=== PATIENT | female | born 1960 | race American Indian/Alaskan Native ===

== ENCOUNTER 2016-03-26 07:38 | Outpatient (CLI) | payer OTHER ==
--- NOTE | 2016-03-26 10:12 | Mammography Report ---
Bilateral mammogram: Compared to 06/19/13. CAD stabilized. Findings: Heterogeneous breast parenchyma bilaterally. Focal asymmetry upper right breast without interval change. There is new 1 cm circumscribed density noted at upper mid right breast and outer mid left breast. No microcalcifications. Benign axilla. Impression: New density right and left breast. Recommend spot magnificent sonographic examination. BI-RADS CATEGORY: 0 = Needs additional imaging evaluation ACR BI-RADS MAMMOGRAPHIC CODES: 0 = Needs additional imaging evaluation; 1 = Negative; 2 = Benign; 3 = Probably benign; 4 = Suspicious; 5 = Malignant; 6 = Known biopsy-proven malignancy COMMENT: 1. Dense breast tissue, i.e., adenosis, fibrocystic changes, etc., may obscure an underlying neoplasm. 2. Approximately 10% of cancers are not detected with mammography. 3. A negative mammography report should not delay biopsy if a clinically suspicious mass is present. COMMENT: Patient follow-up letters are generated in [employer]..
== END 2016-03-26 07:39 | disposition home or self-care (01) ==
LOC: MAMMO 07:38
PROVIDERS: ATTEND Obstetrics & Gynecology Gynecology
DX: Z12.31 Encounter for screening mammogram for malignant neoplasm of breast (principal)
CPT/HCPCS: 77067; G0202

== ENCOUNTER 2016-04-02 13:30 | Outpatient (CLI) | payer OTHER ==
--- NOTE | 2016-04-02 14:11 | Mammography Report ---
BILATERAL DIGITAL DIAGNOSTIC MAMMOGRAM : 04/02/16 13:30:00 CLINICAL: Recalled for bilateral asymmetries. COMPARISON:03/26/16 screening FINDINGS: Bilateral ML and spot compression views were performed. Satisfactory effacement of the previously described asymmetry on the spot views. Lateral views are negative. IMPRESSION: Negative Mammogram. BI-RADS CATEGORY: 1 -- Negative RECOMMENDATION: Routine mammographic screening in one year. ACR BI-RADS MAMMOGRAPHIC CODES: 0 = Needs additional imaging evaluation; 1 = Negative; 2 = Benign; 3 = Probably benign; 4 = Suspicious; 5 = Malignant; 6 = Known biopsy-proven malignancy COMMENT: 1. Dense breast tissue, i.e., adenosis, fibrocystic changes, etc., may obscure an underlying neoplasm. 2. Approximately 10% of cancers are not detected with mammography. 3. A negative mammography report should not delay biopsy if a clinically suspicious mass is present. COMMENT: Patient follow-up letters are generated via our [employer] application.
== END 2016-04-02 13:31 | disposition home or self-care (01) ==
LOC: MAMMO 13:30
PROVIDERS: ATTEND Obstetrics & Gynecology Gynecology
DX: R92.8 Other abnormal and inconclusive findings on diagnostic imaging of breast (principal)
CPT/HCPCS: 77066; G0204

== ENCOUNTER 2017-05-12 21:31 | Emergency (ER) | payer OTHER ==
[2017-05-12 22:20] VITALS: BP 147/100
[2017-05-12 22:54] LABS: BUN/Creatinine Ratio 20; Blood Urea Nitrogen 12 mg/dL (7-17); Calcium 9.2 mg/dL (8.4-10.2); Hemolysis Index 5; Uric Acid 3.2 mg/dL (3.5-7.6)
--- NOTE | 2017-05-12 23:55 | XRay Report ---
FINAL REPORT PROCEDURE: XR FOOT 3+V LT TECHNIQUE: LEFT foot radiographs, AP, lateral, and oblique views. CPT 48552 HISTORY: left foot swelling and pain COMPARISON: No prior studies are available for comparison. FINDINGS: Fracture (s) and/or Dislocation(s): None . Alignment: There is a moderate hallux valgus deformity. Joint space(s): Mild narrowing of the joint spaces. Soft tissues: Mild diffuse soft tissue swelling over the midfoot. Bone mineralization: Normal . Foreign bodies: None . Calcaneal spurring: None . IMPRESSION: Mild arthritis. Mild soft tissue swelling. No acute fracture or dislocation.
--- NOTE | 2017-05-12 23:56 | XRay Report ---
FINAL REPORT PROCEDURE: XR ANKLE 3+V LT TECHNIQUE: LEFT ankle radiographs, AP, lateral, and oblique views. CPT 61126 HISTORY: left ankle swelling and pain COMPARISON: No prior studies are available for comparison. FINDINGS: Fracture (s) and/or Dislocation(s): None. Alignment: Normal. Joint space(s): Normal. Soft tissues: Normal. Bone mineralization: Normal. Foreign bodies: None. Calcaneal spurring: None. IMPRESSION: There is no evidence of an acute fracture or dislocation of the ankle..
[2017-05-13] MEDS ORDERED: NORCO 5/325 PO ONE (01:58)
--- NOTE | 2017-05-13 02:03 | Emergency Department Report ---
ED Extremity Problem HPI - General Chief complaint: Extremity Injury, Lower Stated complaint: LEFT ANKLE, FOOT PAIN Time Seen by Provider: 05/13/17 01:05 Source: patient, family Mode of arrival: Wheelchair Limitations: No Limitations - History of Present Illness Initial comments: 57-year-old -Spanish female comes in complaint of left foot and ankle swelling since Saturday. Patient denies any recent traumas to her foot. Patient reports that she does wear steel toed boots to work. Patient reports she feels that maybe the boot is causing her to have foot pain. Patient reports that she took ibuprofen 800 mg which did not help with her pain. She also reports she's been placing ice and elevating her foot. Patient reports no past medical history currently takes no medications and has no known drug allergies. MD Complaint: extremity pain -: days(s) (3) Location: left History of Same: Yes (but not as bad) Radiation: none Severity scale (0 -10): 10 Quality: burning, aching Consistency: constant Improves with: nothing Worsens with: weight bearing Associated Symptoms: denies other symptoms - Related Data Previous Rx's Medication Instructions Recorded Last Taken Type traMADol [Ultram 50 MG tab] 50 mg PO Q6HR PRN #12 tablet 05/13/17 Unknown Rx Allergies Allergy/AdvReac Type Severity Reaction Status Date / Time No Known Allergies Allergy Unverified 06/19/13 10:51 ED Review of Systems ROS: Stated complaint: LEFT ANKLE, FOOT PAIN Other details as noted in HPI Constitutional: denies: chills, fever Eyes: denies: eye pain, eye discharge, vision change ENT: denies: ear pain, throat pain Respiratory: denies: cough, shortness of breath, wheezing Cardiovascular: denies: chest pain, palpitations Endocrine: no symptoms reported Gastrointestinal: denies: abdominal pain, nausea, diarrhea Genitourinary: denies: urgency, dysuria, discharge Musculoskeletal: arthralgia Skin: denies: rash, lesions Neurological: denies: headache, weakness, paresthesias Psychiatric: denies: anxiety, depression Hematological/Lymphatic: denies: easy bleeding, easy bruising ED Past Medical Hx - Past Medical History Previous Medical History?: No - Surgical History Past Surgical History?: No - Social History Smoking Status: Never Smoker Substance Use Type: None - Medications Home Medications: Home Medications Medication Instructions Recorded Confirmed Last Taken Type traMADol [Ultram 50 MG tab] 50 mg PO Q6HR PRN #12 tablet 05/13/17 Unknown Rx ED Physical Exam - General Limitations: No Limitations General appearance: alert, in no apparent distress - Head Head exam: Present: atraumatic, normocephalic - Eye Eye exam: Present: normal appearance - ENT ENT exam: Present: mucous membranes moist - Neck Neck exam: Present: normal inspection - Respiratory Respiratory exam: Present: normal lung sounds bilaterally. Absent: respiratory distress - Cardiovascular Cardiovascular Exam: Present: regular rate, normal rhythm. Absent: systolic murmur, diastolic murmur, rubs, gallop - GI/Abdominal GI/Abdominal exam: Present: soft, normal bowel sounds - Expanded Lower Extremity Exam Left Upper Leg exam: Present: normal inspection Knee exam: Present: normal inspection Lower Leg exam: Present: normal inspection Ankle exam: Present: normal inspection Foot/Toe exam: Present: full ROM, tenderness (to the arch), erythema (to the arch). Absent: swelling Neuro vascular tendon exam: Present: no vascular compromise - Back Exam Back exam: Present: normal inspection - Neurological Exam Neurological exam: Present: alert, oriented X3 - Psychiatric Psychiatric exam: Present: normal affect, normal mood - Skin Skin exam: Present: warm, dry, intact, normal color. Absent: rash ED Course Vital Signs 05/12/17 22:15 Temperature 97.7 F Pulse Rate 71 Respiratory 16 Rate Blood Pressure 147/100 O2 Sat by Pulse 100 Oximetry ED Medical Decision Making - Lab Data Result diagrams: 05/12/17 22:30 - Medical Decision Making Patient has been evaluated by this provider fast track. Discussed the patient that her labs came back within normal limits. X-ray result came back with no evidence of any acute fractures or dislocation of the ankle. Discussed the patient give her pain medication and discharge her home on trauma at all. I recommended further follow-up either with orthopedist or mobile device engineer if pain persists or gets worse. Also discussed with the patient's take a few days off work to keep her feet out of the steel toe boots. Patient verbalized understanding. Critical care attestation.: If time is entered above; I have spent that time in minutes in the direct care of this critically ill patient, excluding procedure time. ED Disposition Clinical Impression: Foot pain, left Disposition: [id number] TO HOME OR SELFCARE Is pt being admited?: No Does the pt Need Aspirin: No Condition: Stable Additional Instructions: Please take pain medication as prescribed. Please follow-up with the orthopedist or mobile device engineer pain persist or gets worse. Please try not to wear the steel toe boots as this is most likely the problem with ear left foot pain. Prescriptions: traMADol [Ultram 50 MG tab] 50 mg PO Q6HR PRN #12 tablet PRN Reason: Pain Referrals: SUJATA RIVERS MD [Primary Care Provider] - 3-5 Days JONI ADKINS MD [Staff Physician] - 3-5 Days JOSE GOMEZ MD [Staff Physician] - 3-5 Days PETE CHEN DPM [Staff Physician] - 3-5 Days SHANON KATE MD [Staff Physician] - 3-5 Days Forms: Work/School Release Form(ED)
== END 2017-05-13 02:15 | disposition home or self-care (01) ==
LOC: ED 21:31
DX: M79.672 Pain in left foot (principal); M25.572 Pain in left ankle and joints of left foot; M79.89 Other specified soft tissue disorders
CPT/HCPCS: 36415; 80048; 84550; 99284

== ENCOUNTER 2018-11-17 07:53 | Outpatient (CLI) | payer OTHER ==
--- NOTE | 2018-11-17 13:31 | Mammography Report ---
DIGITAL SCREENING MAMMOGRAM WITH CAD, 11/17/2018 INDICATION: Routine screening mammography. TECHNIQUE: Digital bilateral 2D mammography was obtained in the craniocaudal and mediolateral obliq ue projections. This examination was interpreted with the benefit of Computer-Aided Detection analysi s. COMPARISON: 04/02/2016 FINDINGS: Breast Density: The breasts are heterogeneously dense, which may obscure small masses. There is no evidence of dominant mass, suspicious calcifications or architectural distortion in eithe r breast. IMPRESSION: No mammographic evidence of malignancy. Follow up recommendation: Routine yearly BI-RADS Category 1: Negative. A "normal" or negative report should not discourage follow up or biopsy of a clinically significant f inding. A written summary of these findings will be mailed to the patient. The patient will be entered into a mammography reporting system which will generate a reminder letter for the patient's next appointmen t at the appropriate interval. The [employer] recommends yearly mammograms starting at age 40 and continuing as l lisa as a woman is in good health. Breast MRI is recommended for women with an approximate 20-25% or greater lifetime risk of breast cancer, including women with a strong family history of breast or ova александр cancer or who have been treated for Hodgkin's disease. Signer Name: Sudhakar Douglas MD Signed: 11/17/2018 1:27 PM Workstation Name: [id number]
== END 2018-11-17 07:54 | disposition home or self-care (01) ==
LOC: MAMMO 07:53
PROVIDERS: ATTEND Obstetrics & Gynecology
DX: Z12.31 Encounter for screening mammogram for malignant neoplasm of breast (principal)
CPT/HCPCS: 77067

== ENCOUNTER 2020-05-06 08:39 | Outpatient (CLI) | payer BC ==
--- NOTE | 2020-05-06 10:23 | Mammography Report ---
DIGITAL SCREENING MAMMOGRAM WITH CAD, 05/06/2020 CLINICAL INFORMATION / INDICATION: Routine screening mammography. SCREENING MAMMOGRAM TECHNIQUE: Digital bilateral 2D mammography was obtained in the craniocaudal and mediolateral obliqu e projections. This examination was interpreted with the benefit of Computer-Aided Detection analysis . COMPARISON: 06/19/2013 through 11/17/2018. FINDINGS: Breast Density: The breasts are heterogeneously dense, which may obscure small masses. No dominant mass, suspicious calcifications, or architectural distortion in either breast. Mild asymmetric breast tissue superiorly on the right is stable. No new abnormality is seen. IMPRESSION: No mammographic evidence of malignancy. Follow up recommendation: Routine yearly BI-RADS Category 2: Benign. A "normal" or negative report should not discourage follow up or biopsy of a clinically significant f inding. A written summary of these findings will be mailed to the patient. The patient will be entered into a mammography reporting system which will generate a reminder letter for the patient's next appointmen t at the appropriate interval. The [employer] recommends yearly mammograms starting at age 40 and continuing as l lisa as a woman is in good health. Breast MRI is recommended for women with an approximate 20-25% or greater lifetime risk of breast cancer, including women with a strong family history of breast or ova александр cancer or who have been treated for Hodgkin's disease. Signer Name: Sergey Patel MD Signed: 05/06/2020 10:19 AM Workstation Name: [email or web address]
== END 2020-05-06 08:40 | disposition home or self-care (01) ==
LOC: MAMMO 08:39
PROVIDERS: ATTEND Obstetrics & Gynecology
DX: Z12.31 Encounter for screening mammogram for malignant neoplasm of breast (principal)
CPT/HCPCS: 77067